=== PATIENT | male | born 2000 | race Hispanic/Latino ===

== ENCOUNTER → 2024-05-22 | Outpatient (CLI) | payer OTHER ==
--- NOTE | 2024-05-22 10:41 | HMCIMG ---
Exam Type: US ABDOMINAL RUQ\E\LTD Clinical Information: ELEVATED TRANSAMINASE LEVELS Comparison: None Findings: The liver shows normal echogenicity and is otherwise unremarkable. The liver measures less than 16 cm in length. Doppler evaluation shows patent portal and hepatic veins. The gallbladder shows no significant abnormalities. Specifically, no calculi are seen. The gallbladder wall thickness is 3 mm. No bile duct dilatation is noted. The common bile duct measures 3 mm. The right kidney measures 9 x 4.9 cm. The right kidney is normal in size and echogenicity. No hydronephrosis or renal calculi are seen. There are no renal masses. The pancreas is unremarkable. IMPRESSION: Normal right upper quadrant abdominal ultrasound.
== END | disposition home or self-care (01) ==
LOC: RAH 09:38 → EEVIPCON 09:38
PROVIDERS: ATTEND Family Medicine
DX: K82.8 Other specified diseases of gallbladder (principal); R74.01 Elevation of levels of liver transaminase levels
CPT/HCPCS: 76705